=== PATIENT | female | born 1950 | race Caucasian/White ===

== ENCOUNTER 2016-03-12 15:03 | Emergency (ER) | payer BC, MEDICARE, OTHER ==
--- NOTE | 2016-03-12 15:25 | DIRPT ---
CLINICAL DATA: Right ankle pain, fall 1-2 weeks ago. EXAM: RIGHT ANKLE - COMPLETE 3+ VIEW COMPARISON: None FINDINGS: There is a mildly displaced oblique fracture through the distal right fibula just above the ankle mortise. No visible tibial fracture. Ankle mortise appears intact. Early degenerative changes within the right ankle. IMPRESSION: Mildly displaced oblique distal right fibular fracture. Electronically Signed By: Justo Morris M.D. On: 03/12/2016 15:22
[2016-03-12 16:00] VITALS: BMI 29.2
--- NOTE | 2016-03-12 16:02 | EDPRACDOC ---
- General Information Chief Complaint: Head Injury Stated Complaint: FALL - RIGHT ANKLE PAIN/ HEAD LAC Time Seen by Provider: 03/12/16 15:42 Home Medications: Home Medications Aspirin (Enteric Coated) [Halfprin] 81 mg PO DAILY 05/15/14 Insulin Detemir [Levemir Flextouch] 10 units SQ QHS 05/15/14 Nebulizer [Erapid Nebulizer] 1 each MC UNK 05/15/14 PEG-Electrolytes (Miralax) [Miralax] 17 gm PO .UP TO TID PRN 05/15/14 Pantoprazole Sodium [Protonix] 40 mg PO BID 05/15/14 Albuterol/Ipratropium Neb [Duoneb] 3 ml NEB RTQ6 #120 nebu 03/31/15 Carvedilol [Coreg] 6.25 mg PO BID #60 tablet 03/31/15 Ferrous Sulfate [Iron] 325 mg PO TID 10/16/15 Ergocalciferol (Vitamin D2) [Vitamin D2 (ergocalciferol)] 50,000 units PO WEEKLY 12/14/15 Umeclidinium Brm/Vilanterol Tr [Anoro Ellipta 62.5-25 Mcg INH] 1 each IH DAILY 12/14/15 Acetazolamide [Diamox] 500 mg PO TuThSa #20 tablet 12/26/15 Albuterol Sulfate [Proair Hfa] 2 puff INH Q4-6H PRN #1 hfa.aer.ad 12/26/15 Albuterol/Ipratropium Neb [Duoneb] 3 ml NEB RTQ6 #120 nebu 12/26/15 Fluconazole [Diflucan] 200 mg PO QAM #5 tablet 12/26/15 Furosemide [Lasix] 80 mg PO LASBID #60 tablet 12/26/15 Gabapentin 300 mg PO TID #100 capsule 12/26/15 Lactobacillus Combo No.11 [Probiotic] 1 each PO DAILY #30 cap.sprink 12/26/15 Losartan Potassium [Cozaar] 25 mg PO QAM #30 tablet 12/26/15 Nitroglycerin Sublingual Tab [NTG (NitroStat Sublingual Tab)] 0.4 mg SL PRN PRN #100 tablet 12/26/15 POTASSIUM CHLORIDE Tablet [K-DUR 20 mEq Tablet*] 40 meq PO BIDWM #60 tab.er.prt 12/26/15 Prednisone [Deltasone, Orasone] 20 mg PO DAILYWM #14 tablet 12/26/15 Sertraline HCl [Zoloft] 100 mg PO DAILY #30 tablet 12/26/15 Hydrocodone Bit/Acetaminophen [Hydrocodon-Acetaminophen 5-325] 1 tab PO Q6 PRN # 15 tab 03/12/16 Allergies/Adverse Reactions: Allergies Allergy/AdvReac Type Severity Reaction Status Date / Time No Known Allergies Allergy Verified 12/14/15 15:10 - History of Present Illness Onset: [employer] HPI: WAS TAKING PT DOWN STEPS IN WHEELCHAIR WHEN SHE FELL OUT OF WHEELCHAIR, HIT HER HEAD ON CONCRETE, PT HAS LAC TO TOP OF THE HEAD, COMPLAINS OF MILD HEADACHE, NO LOC, NO N/V/D, NO DIZZINESS, NO NECK OR BACK PAIN. PT ALSO STATES THAT SHE INJURED HER RIGHT ANKLE ON DOING PHYSICAL THERAPY, STATES IT CONTINUES TO HURT. Location: Reports: Occipital Pain Quality: Reports: Mild Modifying Factors: Denies: Medication, Exposure to light, Cold therapy, Immobilization, Movement, Rest Prior work up: Denies: NO, O, CT, LP, MRI, Neurologist Relevant History of: Reports: None Associated Signs and Symptoms: Denies: Confusion, Facial Pain, Loss of Consciousness, Nausea/Vomiting, Stiff Neck ED Past Medical History - History Reviewed Yes Nurses notes reviewed and agree except as marked - Patient Medical History Neurological History: Reports: Metabolic encephalopathy Cardiac History: Reports: Coronary Artery Disease, Hypertension, Congestive Heart Failure (diastolic), Heart Attack (2014), Valvular Heart Disease Respiratory History: Reports: COPD (HOME O2 AT 2L), Emphysema. Denies: Pneumonia (Denies) GI/ History: Reports: Renal Failure (chronic renal insufficiency Stage 3), Urinary Tract Infection, Gastroesophageal Reflux, Diverticulosis Psychological History: Reports: Depression, Anxiety. Denies: Substance Use Disorder Systemic History: Reports: Anemia (chronic disease), Diabetes (with peripheral neuropathy and renal insufficiency). Denies: Cancer Surgical History: Reports: Cholecystectomy, Other (partial bowel resection for perf. & colostomy, exploratory laparotomy 2013) - Family Medical History Reports: Hypertension (FATHER), Cardiac Disorders (FATHER). Denies: Diabetes, Cancer, Stroke - Social Medical History Smoking Status: Former smoker Social History: Denies: Substance Use Disorder ETOH: None Substance Abuse: None EDM Review of Systems - Review of Systems Constitutional: negative: Chills, Fever Eyes: negative: Blurred Vision, Double Vision Ears: negative: Drainage, Pain Throat: negative: Pain Nose: negative: Congestion, Discharge Respiratory: Cough. negative: Shortness of Breath, Wheezing Cardiovascular: negative: Chest Pain, Palpitations Gastrointestinal: negative: Diarrhea, Nausea, Pain, Vomiting Genitourinary: negative: Dysuria, Frequency Neurological: Headache. negative: Dizziness, Numbness, Weakness Musculoskeletal: Ankle Integumentary: Wound ED Procedures - Suture/Laceration OCCIPITAL SCALP Wound Length (cm): 2 Wound's Depth, Shape: linear Wound Explored: clean Irrigated w/ Saline (ccs): 20 Anesthesia: Lidocaine w/ Epi Volume Anesthetic (ccs): 3 Wound Repaired With: [place] Number of Sutures: 4 Layer Closure?: No - Splinting 1st splint Location: RIGHT ANKLE Hand-Made Type: orthoglass Splint: sugar-tong Pre-Proc Neuro Vasc Exam: normal Post-Proc Neuro Vasc Exam: normal Other Devices: Other (PT'S OWN WHEELCHAIR) - Physical Exam Constitutional: Alert (Awake), No apparent distress Oriented to: Time, Person, Place Last recorded Vital Signs: Oxygen Pulse Oxygen Saturation O2 Device Oxygen Flow Rate Fraction of Inspired Oxygen ( FIO2) - HEENT Head: Laceration (2 CM LAC OCCIPTIAL SCALP, NO ACTIVE BLEEDING) Eye Exam: Normal (PERRL, EOMI, Sclera white) Oropharynx: Normal (Pharynx:Moist without exudate,Gums-no swelling) Tympanic Membrane: Normal ENT EAC: Normal TMJ: Normal Nose: No Symptoms Reported (septum midline) Neck: Normal (FROM, trachea at midline) - Respiratory/Cardiovascular Respiratory: Normal - CTA (BBS clear to auscultation without adventitious sounds ) Cardiovascular: Normal (RRR without murmur, gallop or rub) - Musculoskeletal Back: Normal (Non-Tender) Extremities: Normal (Normal tone, Pulses 2+ No cyanosis or edema, FROM) Musculoskeletal Comment: RIGHT ANKLE: SWELLING NOTED, TENDER DIFFUSELY, DECREASED ROM DUE TO PAIN, NO DEFORMITY - Integumentary Skin: Normal, Warm, Dry Lymphatics: Normal (no adenopathy) - Neurologic Memory Impaired: Normal Motor Function: Normal (Normal tone, Pulses 2+ No cyanosis or edema, FROM) Cranial Nerve: Normal (CN II-X11 intact sensation, strength 5/5) Cerebellar: Normal Mood Description: Normal Perception: Normal - Differential Diagnosis Closed Head Injury, Contusion, Laceration, Skull Fracture, ICH - Diagnostic Imaging RIGHT ANKLE Image interpreted by: Radiologist Diagnostic Imaging Comments: RIGHT ANKLE - COMPLETE 3+ VIEW COMPARISON: None FINDINGS: There is a mildly displaced oblique fracture through the distal right fibula just above the ankle mortise. No visible tibial fracture. Ankle mortise appears intact. Early degenerative changes within the right ankle. IMPRESSION: Mildly displaced oblique distal right fibular fracture. CT HEAD Image interpreted by: Radiologist Diagnostic Imaging Comments: CT HEAD WITHOUT CONTRAST TECHNIQUE: Contiguous axial images were obtained from the base of the skull through the vertex without intravenous contrast. COMPARISON: 03/28/2015 FINDINGS: Scalp hematoma is noted Ing near the vertex on the left posteriorly. The bony calvarium is intact. Paranasal sinuses and mastoid air cells are within normal limits. These have progressed in the interval from the prior exam. No findings to suggest acute hemorrhage, acute infarction or space-occupying mass lesion are seen. IMPRESSION: Chronic atrophic and ischemic changes without acute abnormality. Decision Time to Discharge: 17:28 - Departure Disposition: Home Condition: Stable Final Diagnosis: LAC OCCIPITAL SCALP, 2 CM, SIMPLE Closed fracture of right distal fibula Qualifiers: Encounter type: initial encounter Fracture morphology: unspecified fracture morphology Qualified Code(s): S82.831A - Other fracture of upper and lower end of right fibula, initial encounter for closed fracture Instructions: RICE: Routine Care for Injuries, Laceration (ED) Education/Counseling Given To: Patient Education/Counseling Given Regarding: Diagnosis, Treatment, Prognosis, Follow Up Referrals: Gadiel Monroy MD [Staff Physician] - One Week Prescriptions: Hydrocodone Bit/Acetaminophen [Hydrocodon-Acetaminophen 5-325] 1 tab PO Q6 PRN # 15 tab PRN Reason: Pain Additional Instructions: KEEP WOUND CLEAN AND DRY, WASH DAILY WITH SOAP AND WATER, HAVE KINA REMOVED IN 7-10 DAYS. KEEP RIGHT ANKLE ELEVATED MUCH POSSIBLE, APPLY COLD COMPRESSES NEEDED FOR PAIN AND SWELLING, WEAR SPLINT UNTIL FOLLOW UP WITH DR MONROY.
[2016-03-12] MEDS ORDERED: Lidocaine 2%-Epinephrine 1:100,000 20ml vial INF ONE (16:22)
--- NOTE | 2016-03-12 16:58 | DIRPT ---
CLINICAL DATA: Recent fall with scalp laceration and headaches EXAM: CT HEAD WITHOUT CONTRAST TECHNIQUE: Contiguous axial images were obtained from the base of the skull through the vertex without intravenous contrast. COMPARISON: 03/28/2015 FINDINGS: Scalp hematoma is noted Ing near the vertex on the left posteriorly. The bony calvarium is intact. Paranasal sinuses and mastoid air cells are within normal limits. These have progressed in the interval from the prior exam. No findings to suggest acute hemorrhage, acute infarction or space-occupying mass lesion are seen. IMPRESSION: Chronic atrophic and ischemic changes without acute abnormality. Electronically Signed By: Alexis Akers M.D. On: 03/12/2016 16:55
[2016-03-12 17:33] VITALS: BP 128/67; PULSE 81
== END 2016-03-12 17:43 | disposition home or self-care (01) ==
LOC: EDMC 15:03
DX: S82.831A Other fracture of upper and lower end of right fibula, initial encounter for closed fracture (principal); S01.01XA Laceration without foreign body of scalp, initial encounter; W19.XXXA Unspecified fall, initial encounter; R51 Headache
CPT/HCPCS: 12001; 29515; 70450; 73610; 99283; J3490